=== PATIENT | male | born 1945 | race Caucasian/White ===

== ENCOUNTER 2017-11-13 10:01 | Observation (INO) | payer MEDICARE ==
[~2017-11-13] VITALS: Ht 182.9 cm; Wt 81.5 kg
[2017-11-13] VITALS (8 sets, daily range): BP systolic 119–174; BP diastolic 59–77; PULSE 60–91; RESP 16–20; TEMP 97–98.2; O2SAT 95–99
[2017-11-13] MEDS ORDERED: LOVA20TA PO (10:19)
--- NOTE | 2017-11-13 10:44 | PD ---
HPI Chief Complaint: Chest Pain Time Seen by Provider: 10:13 Travel History International Travel<30 days: No Contact w/Intl Traveler<30days: No Traveled to known affect area: No History of Present Illness HPI The patient is a 72-year-old male who presents emergency department for chest pain. The patient developed left-sided lower chest pain last night. The chest pain is described as tightness, pressure, and dull. The chest pain is nonradiating, CO2 of mild shortness of breath without any nausea, vomiting, or diaphoresis. The patient does have a history of hyperlipidemia, denies any history of hypertension, diabetes, tobacco use, or coronary artery disease. The patient is never had a stress test in the past. He denies any exertional symptoms. Symptoms are slightly worse lying supine, denies any history of reflux. He denies any epigastric abdominal pain or history of pancreatitis. The patient is from [facility], does not have a local primary physician. PFSH Past Medical History High Cholesterol: Yes Tetanus Vaccination: < 5 Years Past Surgical History Appendectomy: Yes Tonsillectomy: Yes Other Surgery: Yes (PROSTATE SX) Social History Alcohol Use: Yes (OCC) Tobacco Use: No Substance Use: No Allergies-Medications (Allergen,Severity, Reaction): Coded Allergies: No Known Allergies (Unverified , 11/13/17) Reported Meds & Prescriptions Reported Meds & Active Scripts Active Reported Lovastatin 20 Mg Tab 20 Mg PO DAILY Review of Systems Except as stated in HPI: all other systems reviewed are Neg General / Constitutional: No: Fever Cardiovascular: Positive: Chest Pain or Discomfort, No: Diaphoresis, Dyspnea on exertion Respiratory: Positive: Shortness of Breath Gastrointestinal: No: Nausea, Vomiting, Abdominal Pain Musculoskeletal: No: Edema Physical Exam Narrative GENERAL: Awake, alert, pleasant 72-year-old male who appears his stated age is in no acute respiratory distress. SKIN: Focused skin assessment warm/dry. HEAD: Atraumatic. Normocephalic. EYES: No injection or drainage. ENT: No nasal bleeding or discharge. Mucous membranes pink and moist. NECK: Trachea midline. No JVD. CARDIOVASCULAR: Regular rate and rhythm. No murmur appreciated. RESPIRATORY: No accessory muscle use. Clear to auscultation. Breath sounds equal bilaterally. GASTROINTESTINAL: Abdomen soft, no epigastric tenderness. No rebound, guarding , rigidity. MUSCULOSKELETAL: No obvious deformities. No clubbing. No cyanosis. No edema. NEUROLOGICAL: Awake and alert. No obvious cranial nerve deficits. Motor grossly within normal limits. Normal speech. PSYCHIATRIC: Appropriate mood and affect; insight and judgment normal. Data Data Last Documented VS Vital Signs Date Time Temp Pulse Resp B/P (MAP) Pulse Ox O2 Delivery O2 Flow Rate FiO2 11/13/17 10:02 98.2 71 16 174/77 (109) 99 Room Air Orders Orders Electrocardiogram (11/13/17 10:40) Ckmb (Isoenzyme) Profile (11/13/17 10:40) Complete Blood Count With Diff (11/13/17 10:40) Comprehensive Metabolic Panel (11/13/17 10:40) Magnesium (Mg) (11/13/17 10:40) Prothrombin Time / Inr (Pt) (11/13/17 10:40) Act Partial Throm Time (Ptt) (11/13/17 10:40) Troponin I (11/13/17 10:40) Lipase (11/13/17 10:40) Chest, Single Ap (11/13/17 10:40) Ecg Monitoring (11/13/17 10:40) Bilateral Bp Monitoring (11/13/17 10:40) Iv Access Insert/Monitor (11/13/17 10:40) Oximetry (11/13/17 10:40) Oxygen Administration (11/13/17 10:40) Aspirin Chew (Aspirin Chew) (11/13/17 10:45) Morphine Inj (Morphine Inj) (11/13/17 10:45) Nitroglycerin 2% Oint (Nitroglycerin 2% (11/13/17 10:45) Sodium Chloride 0.9% Flush (Ns Flush) (11/13/17 10:45) Sodium Chlorid 0.9% 500 Ml Inj (Ns 500 M (11/13/17 10:45) Ondansetron Inj (Zofran Inj) (11/13/17 10:45) CKMB (11/13/17 10:45) CKMB% (11/13/17 10:45) Admit Order (Ed Use Only) (11/13/17 11:45) Labs Laboratory Tests Test 11/13/17 10:45 White Blood Count 7.0 TH/MM3 Red Blood Count 5.47 MIL/MM3 Hemoglobin 16.4 GM/DL Hematocrit 48.5 % Mean Corpuscular Volume 88.6 FL Mean Corpuscular Hemoglobin 29.9 PG Mean Corpuscular Hemoglobin Concent 33.8 % Red Cell Distribution Width 13.8 % Platelet Count 220 TH/MM3 Mean Platelet Volume 7.3 FL Neutrophils (%) (Auto) 78.5 % Lymphocytes (%) (Auto) 11.9 % Monocytes (%) (Auto) 8.0 % Eosinophils (%) (Auto) 0.8 % Basophils (%) (Auto) 0.8 % Neutrophils # (Auto) 5.5 TH/MM3 Lymphocytes # (Auto) 0.8 TH/MM3 Monocytes # (Auto) 0.6 TH/MM3 Eosinophils # (Auto) 0.1 TH/MM3 Basophils # (Auto) 0.1 TH/MM3 CBC Comment DIFF FINAL Differential Comment Prothrombin Time 11.2 SEC Prothromb Time International Ratio 1.1 RATIO Activated Partial Thromboplast Time 25.1 SEC Blood Urea Nitrogen 14 MG/DL Creatinine 0.93 MG/DL Random Glucose 98 MG/DL Total Protein 7.2 GM/DL Albumin 3.9 GM/DL Calcium Level 8.2 MG/DL Magnesium Level 2.2 MG/DL Alkaline Phosphatase 104 U/L Aspartate Amino Transf (AST/SGOT) 24 U/L Alanine Aminotransferase (ALT/SGPT) 39 U/L Total Bilirubin 0.6 MG/DL Sodium Level 141 MEQ/L Potassium Level 4.0 MEQ/L Chloride Level 109 MEQ/L Carbon Dioxide Level 27.8 MEQ/L Anion Gap 4 MEQ/L Estimat Glomerular Filtration Rate 79 ML/MIN Total Creatine Kinase 139 U/L Creatine Kinase MB 2.7 NG/ML Troponin I LESS THAN 0.02 NG/ML Lipase 149 U/L [facility] Medical Decision Making Medical Screen Exam Complete: Yes Emergency Medical Condition: Yes Medical Record Reviewed: Yes Interpretation(s) EKG reveals normal sinus rhythm with a rate of 68. Left axis deviation. Inverted T-wave noted in lead 3. Last Impressions Chest X-Ray 11/13/17 1040 Signed Impressions: Service Date/Time: Monday, November 13, 2017 10:55 - CONCLUSION: 1. No acute cardiopulmonary disease. 2. Degenerative changes and scoliosis of the thoracic spine Enio Merino MD Laboratory Tests Test 11/13/17 10:45 White Blood Count 7.0 TH/MM3 Red Blood Count 5.47 MIL/MM3 Hemoglobin 16.4 GM/DL Hematocrit 48.5 % Mean Corpuscular Volume 88.6 FL Mean Corpuscular Hemoglobin 29.9 PG Mean Corpuscular Hemoglobin Concent 33.8 % Red Cell Distribution Width 13.8 % Platelet Count 220 TH/MM3 Mean Platelet Volume 7.3 FL Neutrophils (%) (Auto) 78.5 % Lymphocytes (%) (Auto) 11.9 % Monocytes (%) (Auto) 8.0 % Eosinophils (%) (Auto) 0.8 % Basophils (%) (Auto) 0.8 % Neutrophils # (Auto) 5.5 TH/MM3 Lymphocytes # (Auto) 0.8 TH/MM3 Monocytes # (Auto) 0.6 TH/MM3 Eosinophils # (Auto) 0.1 TH/MM3 Basophils # (Auto) 0.1 TH/MM3 CBC Comment DIFF FINAL Differential Comment Prothrombin Time 11.2 SEC Prothromb Time International Ratio 1.1 RATIO Activated Partial Thromboplast Time 25.1 SEC Blood Urea Nitrogen 14 MG/DL Creatinine 0.93 MG/DL Random Glucose 98 MG/DL Total Protein 7.2 GM/DL Albumin 3.9 GM/DL Calcium Level 8.2 MG/DL Magnesium Level 2.2 MG/DL Alkaline Phosphatase 104 U/L Aspartate Amino Transf (AST/SGOT) 24 U/L Alanine Aminotransferase (ALT/SGPT) 39 U/L Total Bilirubin 0.6 MG/DL Sodium Level 141 MEQ/L Potassium Level 4.0 MEQ/L Chloride Level 109 MEQ/L Carbon Dioxide Level 27.8 MEQ/L Anion Gap 4 MEQ/L Estimat Glomerular Filtration Rate 79 ML/MIN Total Creatine Kinase 139 U/L Creatine Kinase MB 2.7 NG/ML Troponin I LESS THAN 0.02 NG/ML Lipase 149 U/L Differential Diagnosis Differential diagnosis includes acute coronary syndrome, gastritis, reflux, pancreatitis, pleural effusion, pneumonia, pneumothorax, pulmonary embolism, esophageal spasm. Narrative Course IV was established, labs are drawn and sent, and the patient was placed on cardiac telemetry monitoring and continuous pulse oximetry monitoring. EKG was ordered and interpreted. The patient was administered aspirin, nitroglycerin sublingual, IV fluids, morphine, and Zofran. Chest x-rays unremarkable. Initial troponin is negative. The patient does have risk factors including male sex, age 72, and hyperlipidemia. Therefore, patient will be 23 hour observation to the chest pain center for serial cardiac enzymes and further evaluation by cardiology for possible stress test. If stress test is negative, patient may need treatment for reflux and outpatient follow-up with GI. Physician Communication Physician Communication The patient will be 23 hour observation to the chest pain center for serial cardiac enzymes and further evaluation by cardiology. Diagnosis Primary Impression: Chest pain Qualified Codes: R07.9 - Chest pain, unspecified Admitting Information Admitting Physician Requests: Observation Condition: Stable Kenny Patel MD Nov 13, 2017 10:44
[2017-11-13] MEDS ORDERED: ASPIRIN 81 MG CHEW TAB PO ONE (10:45)
[2017-11-13] MEDS ORDERED: NITROGLYCERIN 2% OINT 1 GM PACKET TOP ONE (10:45)
[2017-11-13] MEDS ORDERED: SODIUM CHLORIDE 0.9% FLUSH 10 ML FLUSH IVF PRN (10:45)
[2017-11-13] MEDS ORDERED: ONDANSETRON HCL 4 MG/2 ML VIAL IV PUSH ONE (10:45)
[2017-11-13] MEDS ORDERED: SODIUM CHLORID 0.9% 500 ML INJ 500 ML IV ONE (10:45)
[2017-11-13] MEDS ORDERED: MORPHINE SULFATE 4 MG/ML INJ IV PUSH ONE (10:45)
[2017-11-13 11:04] LABS: AUTOMATED NEUTROPHIL # 5.5 TH/MM3 (1.8-7.7); BASOPHIL # 0.1 TH/MM3 (0-0.2); BASOPHIL % 0.8 % (0.0-2.0); EOSINOPHIL # 0.1 TH/MM3 (0-0.4); EOSINOPHIL % 0.8 % (0.0-4.0); HEMATOCRIT 48.5 % (39.0-51.0); HEMOGLOBIN 16.4 GM/DL (13.0-17.0); LYMPH % 11.9 % (9.0-44.0); LYMPHOCYTE # 0.8 TH/MM3 (1.0-4.8); MEAN CELL VOLUME 88.6 FL (80.0-100.0); MEAN CORPUSCULAR HEMOGLOBIN 29.9 PG (27.0-34.0); MEAN CORPUSCULAR HGB CONC 33.8 % (32.0-36.0); MEAN PLATELET VOLUME 7.3 FL (7.0-11.0); MONOCYTE # 0.6 TH/MM3 (0-0.9); NEUT % 78.5 % (16.0-70.0); PLATELET COUNT 220 TH/MM3 (150-450); RED BLOOD COUNT 5.47 MIL/MM3 (4.50-5.90); RED CELL DISTRIBUTION WIDTH 13.8 % (11.6-17.2)
--- NOTE | 2017-11-13 11:08 | RADRPT ---
EXAM DATE/TIME: 11/13/2017 10:55 [facility] COMPARISON: No previous studies available for comparison. INDICATIONS : Chest pain since yesterday. MEDICAL HISTORY : None. SURGICAL HISTORY : None. ENCOUNTER: Initial ACUITY: 2 days PAIN SCORE: 3/10 LOCATION: Bilateral chest FINDINGS: The heart and mediastinal structures are normal. The pulmonary vascular pattern is normal. The lungs are clear. Degenerative changes and scoliosis of the thoracic spine are noted. CONCLUSION: 1. No acute cardiopulmonary disease. 2. Degenerative changes and scoliosis of the thoracic spine Enio Merino MD on November 13, 2017 at 11:05 Board Certified Radiologist. This report was verified electronically.
[2017-11-13 11:17] LABS: ALBUMIN 3.9 GM/DL (3.4-5.0); ALT (GPT) 39 U/L (12-78); AST (GOT) 24 U/L (15-37); BICARBONATE 27.8 MEQ/L (21.0-32.0); BLOOD UREA NITROGEN 14 MG/DL (7-18); CALCIUM 8.2 MG/DL (8.5-10.1); CHLORIDE 109 MEQ/L (98-107); CREATININE 0.93 MG/DL (0.60-1.30); GLOMERULAR FILTRATION RATE 79 ML/MIN (>89); GLUCOSE,RANDOM 98 MG/DL (74-106); MAGNESIUM 2.2 MG/DL (1.5-2.5); SODIUM (NA) 141 MEQ/L (136-145)
[2017-11-13 11:18] LABS: INTERNATIONAL NORMALIZED RATIO 1.1 RATIO; PROTHROMBIN TIME - PATIENT 11.2 SEC (9.8-11.6)
[2017-11-13 11:21] LABS: ALKALINE PHOSPHATASE 104 U/L (45-117); TOTAL BILIRUBIN ADULT 0.6 MG/DL (0.2-1.0); TOTAL PROTEIN 7.2 GM/DL (6.4-8.2); TROPONIN I LESS THAN 0.02 NG/ML (0.02-0.05)
[2017-11-13] MEDS ORDERED: ACETAMINOPHEN/HYDROcodone 325 MG/7.5 MG TAB PO PRN (12:45)
[2017-11-13] MEDS ORDERED: ACETAMINOPHEN 500 MG CPLT PO PRN (12:45)
[2017-11-13] MEDS ORDERED: ONDANSETRON HCL 4 MG/2 ML VIAL IV PUSH PRN (12:45)
[2017-11-13] MEDS ORDERED: ASPI1TAB57 PO (14:06)
--- NOTE | 2017-11-13 14:40 | EKG ---
Date Performed: 11/13/2017 Time Performed: 10:14:57 PTAGE: 72 years EKG: Sinus rhythm MARKED LEFT AXIS DEVIATION MINIMAL VOLTAGE CRITERIA FOR LVH, CONSIDER NORMAL VARIANT ABNORMAL ECG NO PREVIOUS TRACING DOCTOR: An Bowers Interpretating Date/Time 11/13/2017 14:32:49
[2017-11-13 14:46] LABS: TROPONIN I LESS THAN 0.02 NG/ML (0.02-0.05)
--- NOTE | 2017-11-13 14:52 | HHI.HP ---
HPI Primary Care Physician Unknown Chief Complaint CHEST PAIN History of Present Illness Is a 72-year-old male that presents to ED via private vehicle with his with a complaint of developing a discomfort in left side of his chest yesterday while sitting at home. Was a tightness. Also felt a little fluttering sensation in the same area. He states he would rub the area would feel little better. It lasted about 30 minutes. He was short of breath. Then this morning is similar discomfort began lasting 30 minutes. He also short of breath with her. However a few hours later the discomfort reoccurred also making sure breath at that point he decided to seek treatment. It lasted 15 minutes. Denies history of CAD. States he's never had a stress test. Denies recent illness. Denies fevers or chills. He is here for a few months, his PCP is in [place]. Currently no chest discomfort. Review of Systems General: Patient denies fevers, chills recent, and recent travel HEENT: Patient denies headache, sore throat, difficulty swallowing. Cardiovascular: Has the chest discomfort as mentioned above. Denies sensation of heart beating rapidly or irregularly. No syncope. Denies diaphoresis. Respiratory: He was short of breath. Denies shortness of breath chest discomfort. Denies coughing wheezing or hemoptysis. GI: Patient denies nausea, vomiting, diarrhea, abdominal pain, bloody stools. Musculoskeletal: Patient denies joint pain or edema. Denies calf pain or edema. Neurovascular: Patient denies numbness, tingling, weakness in extremities. Denies headache. Endocrine: Denies polyuria and polydipsia. Hematologic: Denies easy bruising. Skin: Denies rash or itching. Past Family Social History Allergies: Coded Allergies: No Known Allergies (Unverified , 11/13/17) Past Medical History Hyperlipidemia, prostate cancer with prostatectomy 5 years ago. Denies diabetes , hypertension, and known CAD. Past Surgical History Appendectomy, tonsillectomy, prostatectomy, right hip. Reported Medications Reported Meds & Active Scripts Active Reported Aspirin 81 (Aspirin) 81 Mg Tabdr 81 Mg PO DAILY Lovastatin 20 Mg Tab 20 Mg PO DAILY Active Ordered Medications Current Medications Medications (Trade) Dose Ordered Sig/Breana Route Start Time Stop Time Status Last Admin (NS Flush) 2 ml UNSCH PRN IVF 11/13/17 10:45 11/13/17 12:01 (Tylenol) 500 mg Q4H PRN PO 11/13/17 12:45 ([place] 7.5-325 Mg) 1 tab Q4H PRN PO 11/13/17 12:45 (Zofran Inj) 4 mg Q6H PRN IV PUSH 11/13/17 12:45 (Aspirin) 325 mg DAILY PO 11/14/17 09:00 Family History States his father had congestive heart failure 70s. His mother had angina in her 70s and passed with cancer at age 72. Other than that he really is unaware of any more specific cardiac issues with his mother. Social History Remote history of tobacco abuse. Quit smoking about 50 years ago. States he smoked 2 packs Sigrist daily for 10 years. Has occasional alcohol. Denies illicit drugs. He is . Physical Exam Vital Signs Vital Signs Date Time Temp Pulse Resp B/P (MAP) Pulse Ox O2 Delivery O2 Flow Rate FiO2 11/13/17 13:51 98.0 60 18 119/59 (79) 97 11/13/17 13:14 11/13/17 12:15 97 Room Air 11/13/17 12:15 97 Room Air 11/13/17 11:15 62 17 142/73 (96) 99 Room Air 11/13/17 10:02 98.2 71 16 174/77 (109) 99 Room Air Physical Exam GENERAL: This is a well-nourished, well-developed patient, in no apparent distress. Patient speaks in clear complete sentences. Patient is pleasant. HEENT: Head is atraumatic and normocephalic. Neck is supple without lymphadenopathy and trachea is midline. No JVD or carotid bruits. CARDIOVASCULAR: Regular rate and rhythm without murmurs, gallops, or rubs. RESPIRATORY: Clear to auscultation. Breath sounds equal bilaterally. No wheezes , rales, or rhonchi. Chest wall is nontender. No use of accessory muscles. GASTROINTESTINAL: Abdomen is nontender, nondistended. Abdomen soft. No obvious pulsatile mass or bruit. No CVA tenderness. Strong femoral pulses bilaterally. Normal bowel sounds in all quadrants. MUSCULOSKELETAL: Patient is moving upper and lower extremities freely. No calf tenderness or edema, no Homans sign. Strong pulses in upper and lower extremities. NEUROLOGICAL: Patient is alert and oriented. Cranial nerves 2-12 are grossly intact. No focal deficits and speech is clear. SKIN: No rash and turgor is normal. Laboratory Laboratory Tests Test 11/13/17 10:45 11/13/17 14:00 White Blood Count 7.0 Red Blood Count 5.47 Hemoglobin 16.4 Hematocrit 48.5 Mean Corpuscular Volume 88.6 Mean Corpuscular Hemoglobin 29.9 Mean Corpuscular Hemoglobin Concent 33.8 Red Cell Distribution Width 13.8 Platelet Count 220 Mean Platelet Volume 7.3 Neutrophils (%) (Auto) 78.5 Lymphocytes (%) (Auto) 11.9 Monocytes (%) (Auto) 8.0 Eosinophils (%) (Auto) 0.8 Basophils (%) (Auto) 0.8 Neutrophils # (Auto) 5.5 Lymphocytes # (Auto) 0.8 Monocytes # (Auto) 0.6 Eosinophils # (Auto) 0.1 Basophils # (Auto) 0.1 CBC Comment DIFF FINAL Differential Comment Prothrombin Time 11.2 Prothromb Time International Ratio 1.1 Activated Partial Thromboplast Time 25.1 Blood Urea Nitrogen 14 Creatinine 0.93 Random Glucose 98 Total Protein 7.2 Albumin 3.9 Calcium Level 8.2 Magnesium Level 2.2 Alkaline Phosphatase 104 Aspartate Amino Transf (AST/SGOT) 24 Alanine Aminotransferase (ALT/SGPT) 39 Total Bilirubin 0.6 Sodium Level 141 Potassium Level 4.0 Chloride Level 109 Carbon Dioxide Level 27.8 Anion Gap 4 Estimat Glomerular Filtration Rate 79 Total Creatine Kinase 139 Creatine Kinase MB 2.7 Troponin I LESS THAN 0.02 Lipase 149 Result Diagram: 11/13/17 1045 11/13/17 1045 Imaging Last 24 hours Impressions Chest X-Ray 11/13/17 1040 Signed Impressions: Service Date/Time: Monday, November 13, 2017 10:55 - CONCLUSION: 1. No acute cardiopulmonary disease. 2. Degenerative changes and scoliosis of the thoracic spine Enio Merino MD Course Initial EKG has sinus rhythm without significant ST segment depressions or elevations. Caprini VTE Risk Assessment Caprini VTE Risk Assessment: Mod/High Risk (score >= 2) Caprini Risk Assessment Model Point Value = 1 Point Value = 2 Point Value = 3 Point Value = 5 Age 41-60 Minor surgery BMI > 25 kg/m2 Swollen legs Varicose veins or History of unexplained or recurrent spontaneous Oral contraceptives or hormone replacement Sepsis (< 1 month) Serious lung disease, including pneumonia (< 1 month) Abnormal pulmonary function Acute myocardial infarction Congestive heart failure (< 1 month) History of inflammatory bowel disease Medical patient at bed rest Age 61-74 Arthroscopic surgery Major open surgery (> 45 min) Laparoscopic surgery (> 45 min) Malignancy Confined to bed (> 72 hours) Immobilizing plaster cast Central venous access Age >= 75 History of VTE Family history of VTE Factor V Leiden Prothrombin [id number] Lupus anticoagulant Anticardiolipin antibodies Elevated serum homocysteine Heparin-induced thrombocytopenia Other congenital or acquired thrombophilia Stroke (< 1 month) Elective arthroplasty Hip, pelvis, or leg fracture Acute spinal cord injury (< 1 month) Prophylaxis Regimen Total Risk Factor Score Risk Level Prophylaxis Regimen 0-1 Low Early ambulation 2 Moderate Order ONE of the following: *Sequential Compression Device (SCD) *Heparin 5000 units SQ BID 3-4 Higher Order ONE of the following medications: *Heparin 5000 units SQ TID *Enoxaparin/Lovenox 40 mg SQ daily (WT < 150 kg, CrCl > 30 mL/min) *Enoxaparin/Lovenox 30 mg SQ daily (WT < 150 kg, CrCl > 10-29 mL/min) *Enoxaparin/Lovenox 30 mg SQ BID (WT < 150 kg, CrCl > 30 mL/min) AND/OR *Sequential Compression Device (SCD) 5 or more Highest Order ONE of the following medications: *Heparin 5000 units SQ TID (Preferred with Epidurals) *Enoxaparin/Lovenox 40 mg SQ daily (WT < 150 kg, CrCl > 30 mL/min) *Enoxaparin/Lovenox 30 mg SQ daily (WT < 150 kg, CrCl > 10-29 mL/min) *Enoxaparin/Lovenox 30 mg SQ BID (WT < 150 kg, CrCl > 30 mL/min) AND *Sequential Compression Device (SCD) Assessment and Plan Assessment and Plan * Chest pain: Patient will continue to have serial cardiac enzymes and EKGs for ruling out purposes. He will be evaluated by Dr. Deal cardiology in the chest pain center and will have stress test in the morning if he rules out. He would be discharged home if the stress test is nonischemic with instructions to follow-up with PCP. Return to ED for interval issues. * Hyperlipidemia: Continue current medication. Patient is stable at this time. He is agreeable to this plan. Taz Garza Nov 13, 2017 14:52
--- NOTE | 2017-11-13 17:43 | EKG ---
Date Performed: 11/13/2017 Time Performed: 13:56:13 PTAGE: 72 years EKG: SINUS BRADYCARDIA BORDERLINE LEFT AXIS DEVIATION LOW QRS VOLTAGE IN PRECORDIAL LEADS MINIMA L VOLTAGE CRITERIA FOR LVH, CONSIDER NORMAL VARIANT BORDERLINE ECG Since PREVIOUS TRACING , no significant change noted PREVIOUS TRACIN11/13/2017 10.14 DOCTOR: Aydee Deal Interpretating Date/Time 11/13/2017 17:41:41
[2017-11-13 17:48] LABS: TROPONIN I LESS THAN 0.02 NG/ML (0.02-0.05)
[2017-11-14] VITALS (8 sets, daily range): BP systolic 101–131; BP diastolic 55–70; PULSE 55–70; RESP 17–18; TEMP 97.8–98.2; O2SAT 95–98
[2017-11-14] MEDS ORDERED: ASPIRIN 325 MG TAB PO SCH (09:00)
--- NOTE | 2017-11-14 12:08 | RADRPT ---
EXAM DATE/TIME: 11/14/2017 09:32 [facility] COMPARISON: No previous studies available for comparison. INDICATIONS : Left sided chest pain. Angina DOSE: 25.4 mCi Tc99m Myoview at stress 8.7 mCi Tc99m Myoview at rest REST HEART RATE: 83 BPM TARGET HEART RATE: 124 BPM MAX HEART RATE: 140 BPM REST BLOOD PRESSURE: 124/52 mmHg MAX BLOOD PRESSURE: 158/60 mmHg EJECTION FRACTION: 70% MEDICAL HISTORY : Carcinoma, prostate. Hypercholesterolemia. SURGICAL HISTORY : Right hip replacement. ENCOUNTER: Initial ACUITY: 1 day PAIN SCALE: 5/10 LOCATION: Left chest TECHNIQUE: The patient underwent upright treadmill exercise in the chest pain center. Continuous ECG tracing wa s monitored during stress. Gated SPECT imaging was performed after stress, and conventional SPECT im aging was performed at rest. The examination was performed on a SPECT/CT scanner, both attenuation-c orrected and non-corrected datasets were reviewed. FINDINGS: DISTRIBUTION: The maximum perfused segment at stress is in the anterior wall. PERFUSION STUDY: The pattern of perfusion at stress is within normal limits with regional variations of perfusion and 30% on the attenuation corrected images. The summed stress score zero. No evidence of redistribution. GATED STUDY: There is intact wall motion and thickening without hypokinetic or dyskinetic segments. CONCLUSION: 1. No evidence of stress-induced ischemia. 2. Intact wall motion with 70% ejection fraction. RISK CATEGORY: Low (<1% Annual Mortality Rate) Gianni Dominguez MD on November 14, 2017 at 12:03 Board Certified Radiologist. This report was verified electronically.
--- NOTE | 2017-11-14 12:49 | HHI.DCPOC ---
Discharge Care Plan Diagnosis: (1) Chest pain (2) Hyperlipidemia Goals to Promote Your Health * To prevent worsening of your condition and complications * To maintain your health at the optimal level Directions to Meet Your Goals Take your medications as prescribed Follow your dietary instruction Follow activity as directed Keep your appointments as scheduled Take your immunizations and boosters as scheduled If your symptoms worsen call your PCP, if no PCP go to Urgent Care Center or Emergency Room Smoking is Dangerous to Your Health. Avoid second hand smoke Call the 24-hour hour crisis hotline for domestic abuse at Taz Garza Nov 14, 2017 12:49
--- NOTE | 2017-11-14 14:30 | EKG ---
Date Performed: 11/13/2017 Time Performed: 17:09:50 PTAGE: 72 years EKG: Sinus rhythm MARKED LEFT AXIS DEVIATION LOW QRS VOLTAGE IN PRECORDIAL LEADS ABNORMAL ECG PREVIOUS TRACING : 11/13/2017 13.56 Since previous tracing, no significant change noted DOCTOR: Gomez Live Interpretating Date/Time 11/14/2017 14:28:29
--- NOTE | 2017-11-14 14:33 | TR ---
Date Performed: 11/14/2017 Time Performed: 10:09:44 DOCTOR: Gomez Live DRUG LIST: CLINICAL HISTORY: REASON FOR TEST: REASON FOR ENDING: OBSERVATION: CONCLUSION: ZANE PROTOCOL NUCLEAR ETT. NO CP. PT WAS SOB. Maximum BI=443 % Max HR Achieved=96.0 % Total Exercise Time=2:54 COMMENTS: Patient exercised using the Zane protocol. No electrocardiographic changes were seen to suggest ischemia. Hemodynamic response to exercise was normal. No significant arrhythmia was prese nt.
== END 2017-11-14 13:14 | disposition home or self-care (01) ==
LOC: NEPC 10:01 → NEDA 11:49 → NEPGCP 13:11
PROVIDERS: ADMIT Internal Medicine Interventional Cardiology; ATTEND Internal Medicine Interventional Cardiology
DX: R07.89 Other chest pain (principal); E78.5 Hyperlipidemia, unspecified; R06.02 Shortness of breath; E78.00 Pure hypercholesterolemia, unspecified; R94.31 Abnormal electrocardiogram [ECG] [EKG]; I49.8 Other specified cardiac arrhythmias; Z87.891 Personal history of nicotine dependence; Z85.46 Personal history of malignant neoplasm of prostate
CPT/HCPCS: 71045; 78452; 80053; 82550; 82552; 83690; 83735; 84484; 85025; 85610; 85730; 93005; 93017; 96374; 96375; 96376; 99285; A9502; G0378; J2270; J2405; J7040